=== PATIENT | female | born 1945 | race Caucasian/White ===

== ENCOUNTER 2021-02-23 10:14 | Inpatient (IN) ==
[2021-02-23 10:55] LABS: Basophils # 0.1 10*3/uL (0.0-0.2); Basophils % 0.4 % (0.0-0.8); Eosinophils # 0.1 10*3/uL (0.0-0.87); Eosinophils % 0.7 % (0.00-10.9); Hematocrit 38.4 VOL% (35.7-47.0); Hemoglobin 13.1 GM/DL (12.0-16.0); Immature Granulocytes % 0.5 %; Immature Granulocytes Absolute 0.07 #; Lymphocytes # 1.2 10*3/uL (1.4-4.0); Lymphocytes % 9.2 % (21.3-54.2); Mean Corpuscular HGB Conc 34.1 GM/DL (32-36); Mean Platelet Volume 13.5 FL (9.6-12.0); Neutrophils % 81.2 % (38.7-73.9); Platelet Count 124 T/CUMM (130-400); Red Blood Count 4.13 MC/CUMM (3.8-5.5); Red Cell Distribution Width 12.6 % (9.3-17.3); White Blood Count 13.1 T/CUMM (4-12)
[2021-02-23 11:13] LABS: Eosinophils 1 % (0-10); Lymphocytes 11 % (20-55); Segmented Neutrophils 80 % (50-85); Total Cells Counted 100
[2021-02-23] MEDS ORDERED: methylPREDNISolone SOD SUC 125 MG/2 ML VIAL IV STA (11:41)
[2021-02-23 11:46] LABS: Calcium 9.2 MG/DL (8.5-10.1); Osmolality,Calculated 265.5 MOS/KG (273-304); Potassium 3.9 MMOL/L (3.5-5.1); Uric Acid 4.2 MG/DL (2.6-6.0)
[2021-02-23 12:00] LABS: Sedimentation Rate-Westergren 54 MM/HR (0-30)
[2021-02-23] MEDS ORDERED: VANCOMYCIN INJ 1,000 MG in SODIUM CHLORIDE 0.9% 250 ML IV STA (12:32)
[2021-02-23] MEDS ORDERED: DEXTROSE 50% 25 GM/50 ML VIAL IV PRN (13:29)
[2021-02-23] MEDS ORDERED: ONDANSETRON 4 MG/2 ML VIAL IV PRN (13:29)
[2021-02-23] MEDS ORDERED: GLUCAGON 1 MG VIAL IM PRN (13:29)
[2021-02-23] MEDS: SODIUM CHLORIDE 0.9% 1,000 ML IV SCH (15:56)
[2021-02-23] MEDS: ENOXAPARIN 40 MG/0.4 ML SYRINGE SUBCUT SCH (15:59)
[2021-02-23] MEDS: cefTRIAXone 1,000 MG in SODIUM CHLORIDE 0.9% 100 ML IV SCH (16:00)
[2021-02-23] MEDS ORDERED: INDOMETHACIN SR 75 MG CAPSULE PO SCH (18:00)
[2021-02-23] MEDS: INDOMETHACIN 25 MG CAPSULE PO SCH (20:41)
[2021-02-24] MEDS: VANCOMYCIN INJ 1,000 MG in SODIUM CHLORIDE 0.9% 250 ML IV SCH ×2 (00:48→13:17)
[2021-02-24 05:30] LABS: Basophils % 0.1 % (0.0-0.8); Hematocrit 37.8 VOL% (35.7-47.0); Hemoglobin 12.6 GM/DL (12.0-16.0); Immature Granulocytes % 0.4 %; Immature Granulocytes Absolute 0.04 #; Lymphocytes # 1.1 10*3/uL (1.4-4.0); Lymphocytes % 11.9 % (21.3-54.2); Mean Corpuscular HGB Conc 33.3 GM/DL (32-36); Mean Corpuscular Volume 94.5 FL (87-102); Mean Platelet Volume 13.4 FL (9.6-12.0); Monocytes % 2.8 % (1.7-12.7); Neutrophils % 84.8 % (38.7-73.9); Platelet Count 145 T/CUMM (130-400)
[2021-02-24 05:57] LABS: Calcium 9.2 MG/DL (8.5-10.1)
[2021-02-24] MEDS: SODIUM CHLORIDE 0.9% 1,000 ML IV SCH (06:31)
[2021-02-24 07:57] LABS: Platelet Estimate Normal
[2021-02-24] MEDS: INDOMETHACIN 25 MG CAPSULE PO SCH ×3 (09:01→21:02)
[2021-02-24] MEDS: ENOXAPARIN 40 MG/0.4 ML SYRINGE SUBCUT SCH (14:29)
[2021-02-24] MEDS: cefTRIAXone 1,000 MG in SODIUM CHLORIDE 0.9% 100 ML IV SCH (14:31)
[2021-02-25] MEDS: SODIUM CHLORIDE 0.9% 1,000 ML IV SCH (01:16)
[2021-02-25] MEDS: VANCOMYCIN INJ 1,000 MG in SODIUM CHLORIDE 0.9% 250 ML IV SCH (01:30)
[2021-02-25 05:45] LABS: Basophils % 0.3 % (0.0-0.8); Eosinophils # 0.2 10*3/uL (0.0-0.87); Eosinophils % 1.8 % (0.00-10.9); Hematocrit 33.3 VOL% (35.7-47.0); Hemoglobin 10.9 GM/DL (12.0-16.0); Immature Granulocytes % 0.3 %; Immature Granulocytes Absolute 0.03 #; Lymphocytes # 2.2 10*3/uL (1.4-4.0); Lymphocytes % 25.3 % (21.3-54.2); Mean Corpuscular HGB Conc 32.7 GM/DL (32-36); Mean Corpuscular Volume 95.4 FL (87-102); Mean Platelet Volume 13.3 FL (9.6-12.0); Monocytes % 7.3 % (1.7-12.7); Platelet Count 135 T/CUMM (130-400); Red Blood Count 3.49 MC/CUMM (3.8-5.5); Red Cell Distribution Width 12.4 % (9.3-17.3); White Blood Count 8.8 T/CUMM (4-12)
[2021-02-25 06:14] LABS: Calcium 8.5 MG/DL (8.5-10.1); Osmolality,Calculated 282.3 MOS/KG (273-304); Potassium 3.9 MMOL/L (3.5-5.1)
[2021-02-25] MEDS ORDERED: MAGNESIUM SULF RIDER 2 GM/50 ML PREMIX IV ONE (07:13)
[2021-02-25] MEDS: INDOMETHACIN 25 MG CAPSULE PO SCH ×3 (09:14→20:07)
[2021-02-25] MEDS: ENOXAPARIN 40 MG/0.4 ML SYRINGE SUBCUT SCH (12:32)
[2021-02-26 05:50] LABS: Basophils # 0.1 10*3/uL (0.0-0.2); Basophils % 1.1 % (0.0-0.8); Eosinophils # 0.3 10*3/uL (0.0-0.87); Eosinophils % 5.1 % (0.00-10.9); Hematocrit 37.8 VOL% (35.7-47.0); Hemoglobin 12.4 GM/DL (12.0-16.0); Immature Granulocytes % 0.2 %; Immature Granulocytes Absolute 0.01 #; Lymphocytes # 2.1 10*3/uL (1.4-4.0); Lymphocytes % 38.7 % (21.3-54.2); Mean Corpuscular HGB Conc 32.8 GM/DL (32-36); Mean Corpuscular Volume 95.9 FL (87-102); Mean Platelet Volume 13.7 FL (9.6-12.0); Monocytes % 8.6 % (1.7-12.7); Neutrophils % 46.3 % (38.7-73.9); Platelet Count 102 T/CUMM (130-400); Red Blood Count 3.94 MC/CUMM (3.8-5.5); Red Cell Distribution Width 12.5 % (9.3-17.3); White Blood Count 5.3 T/CUMM (4-12)
[2021-02-26 06:15] LABS: Calcium 8.9 MG/DL (8.5-10.1); Potassium 4.5 MMOL/L (3.5-5.1)
[2021-02-26 06:24] LABS: Osmolality,Calculated 274.7 MOS/KG (273-304)
[2021-02-26 06:31] LABS: Hypochromasia Slight; Microcytosis Slight; Ovalocytes Slight; Tear Drop Cells Slight
[2021-02-26] MEDS: INDOMETHACIN 25 MG CAPSULE PO SCH (08:35)
[2021-02-26 11:36] VITALS: BP 136/71
== END 2021-02-26 14:53 | disposition home or self-care (01) | DRG 554 ==
LOC: N.EDINP 10:14 → N.ED 10:14 → SUATTDRO 13:29 → N.EDINP 15:17 → N.3E 15:27
PROVIDERS: ADMIT Internal Medicine; ATTEND Internal Medicine